=== PATIENT | female | born 1935 ===

== ENCOUNTER → 2021-04-28 | Day surgery (SDC) | payer MEDICARE, OTHER ==
[~2021-04-28] VITALS: Ht 172.7 cm; Wt 66.0 kg
[~2021-04-28] MED LIST: ACTIGALL 300MG300 MG PO; AMARYL1 MG PO; AMOXICILLIN/CLA1 TA1 PO; ASPIRIN 81M81 MG/TA2 PO; CALCIUM 600MG+D1 TAB PO; COLACE 100100 MG/CAP PO; CULTURELLE CAP1 EAC1 PO; DITROPAN XL 5MG5 M1 PO; MIRALAX PA17 GM/Dose PO; NAMENDA5 MG PO; PEPCID AC 10MG10 MG PO; TRICOR 48MG48 MG PO; TYLENOL 325MG325 MG PO; ZOFRAN 4MG T4 MG/TAB PO
[2021-04-28 13:50] VITALS: BP 101/66; PULSE 96; TEMP 97.7
[2021-04-28 16:15] VITALS: BP 147/66; PULSE 77; TEMP 99.3
--- NOTE | 2021-04-28 16:15 | NUR ---
Pt returns to [facility] from PACU, awake and alert, appears slightly anxious about being a bothersome, daughter brought to bedside and glasses in place and pt quickly calms down. Provided chocolate pudding and water and tolerates well, no nausea or pain. VSS.
[2021-04-28 16:30] VITALS: BP 140/81; PULSE 68
[2021-04-28 16:45] VITALS: BP 140/76; PULSE 70
--- NOTE | 2021-04-28 16:45 | NUR ---
Pt up to the bathroom via wheelchair, tolerates well, able to void without difficulty. Discharge instructions provided to pt's daughter and [facility] in [place] called and reports given to Kalpana, nurse caring for pt. Pt returns to oo and call light remains in place.
--- NOTE | 2021-04-28 17:10 | NUR ---
IV discontinued and pt taken out via wheelchair and left in care of her daughter Kandace.
[2021-04-28 18:00] VITALS: BP 147/66; PULSE 62
== END ==
LOC: SDCO 12:58
DX: N13.1 Hydronephrosis with ureteral stricture, not elsewhere classified (principal); N81.10 Cystocele, unspecified; N18.9 Chronic kidney disease, unspecified; N32.81 Overactive bladder; K21.9 Gastro-esophageal reflux disease without esophagitis; E11.9 Type 2 diabetes mellitus without complications; E78.5 Hyperlipidemia, unspecified; F03.90 Unspecified dementia, unspecified severity, without behavioral disturbance, psychotic disturbance, mood disturbance, and anxiety; Z90.49 Acquired absence of other specified parts of digestive tract; Z90.710 Acquired absence of both cervix and uterus; Z90.89 Acquired absence of other organs; Z79.82 Long term (current) use of aspirin; Z79.84 Long term (current) use of oral hypoglycemic drugs; Z20.822 Contact with and (suspected) exposure to COVID-19; Z79.899 Other long term (current) drug therapy; Z80.52 Family history of malignant neoplasm of bladder
CPT/HCPCS: C1769; C2617; J0690; J1100; J2405; J2704; J3010; J7120; Q9967